=== PATIENT | female | born 1975 | race Caucasian/White ===

== ENCOUNTER 2020-05-24 13:48 | Outpatient (CLI) | payer OTHER, SELFPAY ==
--- NOTE | ~2020-05-24 | MMUS_ITS ---
EXAMINATION: MM diagnostic toshia LT w gloria, US breast LT complete HISTORY: Left breast at 1200-3:00 TECHNIQUE: 3-D tomosynthesis images of the left breast were performed and synthetic 2-D images were g enerated. CAD analysis was submitted and interpreted. High resolution complete left breast ultrasound was performed. COMPARISON: 09/02/2019, 08/26/2018, 08/06/2017 bilateral digital screening mammogram examinations BREAST PARENCHYMAL COMPOSITION: The breasts are heterogeneously dense, which may obscure small masses . FINDINGS: MAMMOGRAPHIC FINDINGS: No suspicious mass or architectural distortion, malignant calcification, skin thickening or retractio n or significant new or developing density is detected. . ULTRASOUND: There are scattered cysts measuring up to 9.4 mm. No suspicious mass or shadowing are detected. IMPRESSION: 1. No mammographic evidence of malignancy 2. Routine mammographic screening is recommended. BI-RADS Category 2: Benign finding(s). Reviewed, dictated and finalized at location A. IMPRESSION: 1. No mammographic evidence of malignancy 2. Routine mammographic screening is recommended. BI-RADS Category 2: Benign finding(s).
== END 2020-05-24 13:49 | disposition home or self-care (01) ==
PROVIDERS: PCP Emergency Medicine; Visit Provider Obstetrics & Gynecology
DX: N64.4 Mastodynia (principal)
CPT/HCPCS: 76641; 77061; 77065; G0279

== ENCOUNTER 2020-08-22 00:52 | Outpatient (CLI) | payer OTHER, SELFPAY ==
[2020-08-22 16:30] LABS: SARS-CoV-2 RNA PCR Negative
== END 2020-08-22 00:53 | disposition home or self-care (01) ==
LOC: ANHCOVIDDT 00:52
PROVIDERS: Visit Provider Internal Medicine Gastroenterology
DX: Z01.812 Encounter for preprocedural laboratory examination (principal); Z20.828 Contact with and (suspected) exposure to other viral communicable diseases
CPT/HCPCS: 87635; C9803; U0003

== ENCOUNTER 2020-08-24 00:45 | Day surgery (SDC) | payer OTHER, SELFPAY ==
[2020-08-17 14:45] VITALS: BMI 25.4
[2020-08-24 07:02] VITALS: BP 110/77; PULSE 73; RESP 18; TEMP 36.1; O2SAT 100; BMI 25.6
[2020-08-24] MEDS: LACTATED RINGERS 1,000 ML 150 ML IV CONT (07:22)
--- NOTE | 2020-08-24 07:31 | WPDANESEPPF ---
Anes - Initial Pre Proc Eval Procedure: Operation Date: 08/24/20 08:30 Proposed Procedures p Esophagogastroduodenoscopy - Orville Armstrong MD Date/Time: 08/24/20 07:31 Surgeon: Orville Armstrong MD Pre Op Diagnosis: Epigastric Pain Patient Data Age: 45 Gender: F Height: 1.68 m Weight: 72.1 kg Last Vital Signs Temp 36.1 C L 08/24/20 07:02 Pulse 73 08/24/20 07:02 Resp 18 08/24/20 07:02 BP 110/77 08/24/20 07:02 Pulse Ox 100 08/24/20 07:02 Allergies Allergy/AdvReac Type Severity Reaction Status Date / Time No Known Drug Allergies Allergy Unknown Unknown Verified 08/24/20 07:00 Home Medications Medication Instructions Recorded Confirmed Type buspirone 10 mg tablet 10 mg PO BID 10/22/19 08/24/20 History dicyclomine 20 mg tablet 20 mg PO BID 10/22/19 08/24/20 History fluticasone propionate 50 1 spray NASAL DAILY 10/22/19 08/24/20 History mcg/actuation nasal spray,suspension topiramate 50 mg tablet 50 mg PO BID 10/22/19 08/24/20 History alprazolam 0.25 mg tablet 0.25 mg PO TID PRN #30 tablet 06/21/20 08/24/20 Rx bupropion HCl 150 mg 24 hr tablet, 150 mg PO DAILY tablet 07/15/20 08/24/20 History extended release paroxetine HCl 37.5 mg 37.5 mg PO DAILY tablet 07/15/20 08/24/20 History tablet,extended release 24 hr topiramate 100 mg tablet 100 mg PO BID tablet 07/15/20 08/24/20 History ondansetron HCl 4 mg tablet See Rx Instructions .ROUTE 08/02/20 08/24/20 Rx .COMPLEX #20 tablet Nexium 40 mg PO DAILY 08/17/20 08/24/20 History Patient hx anesthesia problems: none Family hx anesthesia problems: none PMFSH Past Medical History Medical History Depression GERD (gastroesophageal reflux disease) Surgical History Surgical History H/O LEEP Family History Family History Grandparent Carcinoma of colon Father Depression Family history of alcoholism Family history of malignant neoplasm of urinary bladder Social History Social History Smoking status: Never smoker Second hand tobacco smoke exposure: No Alcohol intake: current Alcohol use details: socially Substance use type: does not use Living arrangements: with family Gender identity (if verbalized by the patient): Female Spiritual care concerns: No Anes - Eval Final PreProcedure Day of Procedure 08/24/20 07:31 Patient weight: overweight Heart: regular rate and rhythm Lungs: clear to auscultation and normal air movement Airway: Mallampati scale class II Neurological: alert and oriented Last oral intake: >/= 8 hours ASA classification: II Emergent: no Anesthetic plan: proceed Anesthesia type and monitoring: general GIVS Informed Consent: The patient's anesthetic plan and its attendant risks and benefits were discussed with the patient/family/POA. Questions were solicited and answers provided to the satisfaction of the patient/family/POA.
--- NOTE | 2020-08-24 07:56 | WPDGICN ---
Assessment and Plan Assessment and plan (1) LUQ abdominal pain: Code(s): R10.12 - Left upper quadrant pain Status: Acute Assessment and Plan: Epigastric and left upper quadrant pain or identified. Appears to be worse after eating. Poor response to proton pump inhibitors. She has also tried antispasmodic agent with no relief of symptoms. Plan is to evaluate for later with an EGD. Further recommendations subsequently. GI Consult Note Consult date/time: 08/24/20 07:56 HPI: Yennifer Reyes is a 45 year old female Seen in evaluation at the request of Dr. Sosa. Patient complains of left upper quadrant discomfort along with epigastric pain over the last several months. It is worse after eating. She describes a constant left upper quadrant pain. There has been gradual improvement on Nexium 40 mg p.o. daily. Previously tried Nexium [id number]. No response to prior lansoprazole nor with dicyclomine. Patient denies any bleeding. She denies any weight loss. Her family history, her brother and mother both had pancreatic cancer. [facility] Past Medical History Medical History (Updated 08/24/20 @ 07:58 by Orville Armstrong MD) Depression GERD (gastroesophageal reflux disease) Surgical History Surgical History H/O LEEP Family History Family History Grandparent Carcinoma of colon Father Depression Family history of alcoholism Family history of malignant neoplasm of urinary bladder Social History Social History Smoking status: Never smoker Second hand tobacco smoke exposure: No Alcohol intake: current Alcohol use details: socially Substance use type: does not use Living arrangements: with family Gender identity (if verbalized by the patient): Female Spiritual care concerns: No Meds Home Medications and Allergies Home Medications Medication Instructions Recorded Confirmed Type buspirone 10 mg tablet 10 mg PO BID 10/22/19 08/24/20 History dicyclomine 20 mg tablet 20 mg PO BID 10/22/19 08/24/20 History fluticasone propionate 50 1 spray NASAL DAILY 10/22/19 08/24/20 History mcg/actuation nasal spray,suspension topiramate 50 mg tablet 50 mg PO BID 10/22/19 08/24/20 History alprazolam 0.25 mg tablet 0.25 mg PO TID PRN #30 tablet 06/21/20 08/24/20 Rx bupropion HCl 150 mg 24 hr tablet, 150 mg PO DAILY tablet 07/15/20 08/24/20 History extended release paroxetine HCl 37.5 mg 37.5 mg PO DAILY tablet 07/15/20 08/24/20 History tablet,extended release 24 hr topiramate 100 mg tablet 100 mg PO BID tablet 07/15/20 08/24/20 History ondansetron HCl 4 mg tablet See Rx Instructions .ROUTE 08/02/20 08/24/20 Rx .COMPLEX #20 tablet Nexium 40 mg PO DAILY 08/17/20 08/24/20 History Allergies Allergy/AdvReac Type Severity Reaction Status Date / Time No Known Drug Allergies Allergy Unknown Unknown Verified 08/24/20 07:00 Vital Signs Vital Signs - 24 hr 08/24/20 07:02 Temperature 97 F L Pulse Rate 73 Respiratory Rate 18 Blood Pressure 110/77 Pulse Oximetry 100 Exam Narrative: Exam Narrative: Physical exam reveals patient to be alert. Vital signs stable. HEENT exam unremarkable. Patient is anicteric. Lungs are clear to auscultation and percussion. Heart is without murmur or extra sounds. Abdominal exam bowel sounds are present soft nontender with no organomegaly. Digital external rectal exam deferred.
[2020-08-24 08:15] VITALS: BP 84/48; PULSE 59; RESP 18; O2SAT 100
[2020-08-24 08:25] VITALS: BP 87/54; PULSE 60; RESP 18; O2SAT 100
[2020-08-24 08:35] VITALS: BP 113/71; PULSE 60; RESP 18; O2SAT 100
== END 2020-08-24 09:00 | disposition home or self-care (01) ==
PROVIDERS: PCP Emergency Medicine; Visit Provider Internal Medicine Gastroenterology
PROC: 0DJ08ZZ Inspection of Upper Intestinal Tract, Via Natural or Artificial Opening Endoscopic (ICD-10-PCS; CPT 43235; principal; 2020-08-24 08:30)
DX: R10.12 Left upper quadrant pain (principal); R10.13 Epigastric pain; K21.9 Gastro-esophageal reflux disease without esophagitis; F32.9 Major depressive disorder, single episode, unspecified
CPT/HCPCS: 43239; 87081; J2704; J7120

== ENCOUNTER 2020-09-26 08:24 | Outpatient (CLI) | payer OTHER, SELFPAY ==
--- NOTE | ~2020-09-26 | MM_ITS ---
EXAMINATION: MM screening toshia BI w gloria HISTORY: Screening mammogram TECHNIQUE: Craniocaudal and mediolateral oblique 3-D tomosynthesis images were obtained and synthetic 2-D images were generated. CAD analysis was submitted and interpreted. COMPARISON: 05/24/2020 diagnostic left mammogram and complete left breast ultrasound 09/02/2019, 08/26/2018 bilateral digital screening mammogram examinations BREAST PARENCHYMAL COMPOSITION: The breasts are heterogeneously dense, which may obscure small masses . FINDINGS: There is a biopsy marker on the right; history of prior right breast biopsy. There is no ev idence of suspicious mass, calcification, or architectural distortion to suggest malignancy in either breast. There has been no suspicious interval change. IMPRESSION: 1. No mammographic evidence of malignancy. 2. Recommend routine screening mammography in one year. BI-RADS Category 1: Negative Reviewed, dictated and finalized at location A. 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
== END 2020-09-26 08:25 | disposition home or self-care (01) ==
LOC: ANHIMG 08:27
PROVIDERS: PCP Emergency Medicine; Visit Provider Obstetrics & Gynecology
DX: Z12.31 Encounter for screening mammogram for malignant neoplasm of breast (principal)
CPT/HCPCS: 77063; 77067

== ENCOUNTER → 2021-08-21 09:46 | Outpatient (CLI) | payer OTHER, SELFPAY ==
--- NOTE | ~2021-08-21 | US_ITS ---
EXAMINATION: US pelvic complete w TV DATE: 08/21/2021 10:12 INDICATION: Missing IUD strings TECHNIQUE: Multiple transabdominal and endovaginal sonographic images of the pelvis were obtained. COMPARISON: 01/30/2017 FINDINGS: The uterus measures 5.4 x 3.3 x 1.1 cm. The IUD appears to be in expected position. The end ometrial complex measures 3 mm. 2.1 x 2.1 x 2.3 cm. There is a 1.3 x 1.1 x 1.2 cm complex lesion of t he right ovary with a peripheral hypoechoic component, likely hemorrhagic cyst. The left ovary measur es 2.0 x 1.3 x 1.4 cm. There is normal vascular flow in the ovaries There is trace, likely physiologi c free fluid in the pelvis. IMPRESSION: 1. IUD in expected position. 2. Likely hemorrhagic cyst of the right ovary. Reviewed, dictated and finalized at location A.
== END ==
PROVIDERS: Visit Provider Obstetrics & Gynecology
DX: T83.32XA Displacement of intrauterine contraceptive device, initial encounter (principal)
CPT/HCPCS: 76830; 76856

== ENCOUNTER 2021-08-22 11:20 | Outpatient (CLI) | payer OTHER, SELFPAY ==
--- NOTE | ~2021-08-22 | MMUS_ITS ---
EXAMINATION: MM diagnostic toshia BI w gloria, US breast LT limited HISTORY: Left breast lump TECHNIQUE: Full field bilateral ML, MLO and craniocaudal and left spot ML and craniocaudal 3-D tomosy nthesis images were performed and synthetic 2-D images were generated. CAD analysis was submitted and interpreted. High resolution upper inner and upper outer left breast ultrasound was performed. COMPARISON: 09/26/2020 bilateral digital screening mammogram 05/24/2020 diagnostic left mammogram and complete left breast ultrasound 09/02/2019, 08/26/2018 bilateral digital screening mammogram examinations BREAST PARENCHYMAL COMPOSITION: The breasts are heterogeneously dense, which may obscure small masses . FINDINGS: MAMMOGRAPHIC FINDINGS: There is a biopsy marker on the right; history of prior benign right breast biopsy. No suspicious mass or architectural distortion, malignant calcification, skin thickening or retractio n or significant new or developing density is detected. ULTRASOUND: 12:00 4 cm from nipple: Parallel circumscribed sonolucency measuring 5.4 x 2 x 4.9 mm, without supply chain intern al vascularity or posterior shadowing. There are some through-transmission. This is most consistent w ith small cyst. 1:00 1 cm from nipple: Similar parallel circumscribed sonolucency measuring 4.4 x 5.2 x 1.8 mm, witho ut internal vascularity or posterior shadowing, benign in appearance No suspicious mass or shadowing of the upper inner or upper outer quadrants of the left breast is det ected. IMPRESSION: 1. Benign findings; no mammographic evidence of malignancy 2. Routine mammographic screening is recommended BI-RADS Category 2: Benign finding(s). Reviewed, dictated and finalized at location A. IMPRESSION: 1. Benign findings; no mammographic evidence of malignancy 2. Routine mammographic screening is recommended BI-RADS Category 2: Benign finding(s).
== END 2021-08-22 11:21 | disposition home or self-care (01) ==
PROVIDERS: Visit Provider Obstetrics & Gynecology
DX: R92.2 Inconclusive mammogram (principal); N64.4 Mastodynia
CPT/HCPCS: 76642; 77062; 77066; G0279

== ENCOUNTER → 2021-10-10 10:51 | Outpatient (CLI) | payer OTHER, SELFPAY ==
--- NOTE | ~2021-10-10 | US_ITS ---
EXAMINATION: US pelvic complete w TV DATE: 10/10/2021 11:19 INDICATION: Follow-up ovarian cyst. Comparison:Ultrasound dated 08/21/2021 TECHNIQUE: Multiple transabdominal and endovaginal sonographic images of the pelvis performed. FINDINGS: The uterus measures 5.9 x 3.1 x 3.6 cm. The endometrial complex measures 4 mm. There is an IUD present in the endometrium. The right ovary measures 3 x 2 x 3.1 cm and the left ovary measures 2.2 x 2 x 0.7 cm. There are smal l follicles in each ovary. Normal doppler signal in both ovaries. There is no free fluid in the pelvis. There are no abnormal masses seen on either side. IMPRESSION: 1. Unremarkable pelvic ultrasound. Reviewed, dictated and finalized at location A. OLOGY PHYSICIAN
== END ==
PROVIDERS: Visit Provider Obstetrics & Gynecology
DX: N83.209 Unspecified ovarian cyst, unspecified side (principal)
CPT/HCPCS: 76830; 76856

== ENCOUNTER 2022-09-15 11:34 | Outpatient (CLI) | payer OTHER, SELFPAY ==
--- NOTE | ~2022-09-15 | MM_ITS ---
EXAMINATION: MM screening toshia BI w gloria HISTORY: Screening mammogram TECHNIQUE: Craniocaudal and mediolateral oblique 3-D tomosynthesis images were obtained and synthetic 2-D images were generated. CAD analysis was submitted and interpreted. COMPARISON: 08/22/2021 diagnostic bilateral mammogram and limited left breast ultrasound 09/26/2020 bilateral screening mammogram BREAST PARENCHYMAL COMPOSITION: The breasts are heterogeneously dense, which may obscure small masses . FINDINGS: Biopsy marker on the right; history of prior benign right breast biopsy. There is no eviden ce of suspicious mass, calcification, or architectural distortion to suggest malignancy in either marianela ast. There has been no suspicious interval change. IMPRESSION: 1. No mammographic evidence of malignancy. 2. Recommend routine screening mammography in one year. BI-RADS Category 1: Negative Reviewed, dictated and finalized at location A. 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
== END 2022-09-15 11:35 | disposition home or self-care (01) ==
LOC: ANHIMG 11:36
PROVIDERS: PCP Emergency Medicine; Visit Provider Obstetrics & Gynecology
DX: Z12.31 Encounter for screening mammogram for malignant neoplasm of breast (principal)
CPT/HCPCS: 77063; 77067

== ENCOUNTER → 2023-02-28 09:15 | Outpatient (CLI) | payer OTHER, SELFPAY ==
--- NOTE | ~2023-02-28 | MMUS_ITS ---
EXAMINATION: MM diagnostic toshia LT w gloria, US breast LT limited HISTORY: Palpable lump in the upper outer quadrant of the left breast TECHNIQUE: Craniocaudal, mediolateral, and mediolateral oblique 3-D tomosynthesis images of the left breast were performed and synthetic 2-D images were generated. CAD analysis was submitted and interpr eted. High resolution limited left breast ultrasound was performed. COMPARISON: 09/15/2022, 08/22/2021, 09/26/2020 BREAST PARENCHYMAL COMPOSITION: There are scattered areas of fibroglandular density. FINDINGS: MAMMOGRAPHIC FINDINGS: No suspicious mass, calcification, or architectural distortion are identified to suggest malignancy. There has been no suspicious interval change. No mammographic correlate is identified for the reporte d palpable abnormality of the left breast. ULTRASOUND: There is no evidence of focal abnormal solid or cystic mass in the vicinity of the reported palpable abnormality of concern. IMPRESSION: 1. No specific mammographic or sonographic correlate is identified for the reported palpable abnormal ity of concern. Further evaluation at this time should be based on clinical assessment. Continued fol low-up physical examination is recommended. 2. Recommend routine screening mammography, due in August. BI-RADS Category 1: Negative Reviewed, dictated and finalized at location A. IMPRESSION: 1. No specific mammographic or sonographic correlate is identified for the repo rted palpable abnormality of concern. Further evaluation at this time should be based on clinical assessment. Continued follow-up physical examination is sarah mmended. 2. Recommend routine screening mammography, due in August. BI-RADS Category 1: Negative
== END ==
PROVIDERS: PCP Emergency Medicine; Visit Provider Registered Nurse
DX: N63.20 Unspecified lump in the left breast, unspecified quadrant (principal)
CPT/HCPCS: 76642; 77061; 77065; G0279

== ENCOUNTER 2023-11-29 13:24 | Outpatient (CLI) | payer OTHER, SELFPAY ==
--- NOTE | ~2023-11-29 | MM_ITS ---
EXAMINATION: MM screening toshia BI w gloria HISTORY: Screening TECHNIQUE: Craniocaudal and mediolateral oblique 3-D tomosynthesis images were obtained and synthetic 2-D images were generated. CAD analysis was submitted and interpreted. COMPARISON: Comparison to multiple prior studies sequentially, with oldest reviewed study dated 03/2019. BREAST PARENCHYMAL COMPOSITION: Dense: The breasts are heterogeneously dense, which may obscure small masses FINDINGS: There is no evidence of suspicious mass, calcification, or architectural distortion to sugg est malignancy in either breast. There has been no suspicious interval change. IMPRESSION: 1. No mammographic evidence of malignancy. 2. Recommend routine screening mammography in one year. BI-RADS Category 1: Negative Reviewed, dictated and finalized at location A. MAN
== END 2023-11-29 13:25 | disposition home or self-care (01) ==
LOC: ANHIMG 13:28
PROVIDERS: PCP Emergency Medicine; Visit Provider Obstetrics & Gynecology
DX: Z12.31 Encounter for screening mammogram for malignant neoplasm of breast (principal)
CPT/HCPCS: 77063; 77067